=== PATIENT | male | born 1990 | race Caucasian/White ===

== ENCOUNTER 2017-02-17 23:31 | Emergency (ER) | payer SELFPAY ==
[2017-02-17 23:43] VITALS: BP 150/94; PULSE 102; RESP 20; TEMP 97; O2SAT 98
[2017-02-18] MEDS ORDERED: Tetanus/Diphtheria Toxoids 0.5 ml Syringe IM ONE (00:05)
[2017-02-18] MEDS ORDERED: Lidocaine 2% Inj (20ml) INFIL ONE (00:05)
[2017-02-18] MEDS ORDERED: Lidocaine 2% Inj (20ml) ONE (00:08)
--- NOTE | 2017-02-18 00:42 | C.PDOC ---
History Of Present Illness 26 year old male presents to the ED with mother for evaluation of a facial laceration which he sustained prior to arrival. Patient reports he was bitten by his friend's dog while he "was trying to kiss him". Patient now c/o bite wounds/ laceration to left upper lip and left cheek. Otherwise, pt denies headache, drooling, trismus, vision change, ear discharges, neck pain, chest pain , shortness of breath, abd. pain, N/V, denies deformity to B/L UEs and lEs, .At present time, pt appears some what intoxicated, not fully complaint. Time Seen by Provider: 02/17/17 23:36 Chief Complaint (Nursing): Abnormal Skin Integrity History Per: Patient History/Exam Limitations: no limitations Onset/Duration Of Symptoms: Hrs Current Symptoms Are (Timing): Still Present Location Of Injury: Left: Face (upper lip and cheek ) Additional History Per: Patient - Animal Bite Description Of The Attack: Tried To Pet Animal Description Of The Animal: Other (friend's pet) Past Medical History Reviewed: Historical Data, Nursing Documentation, Vital Signs Vital Signs: Last Vital Signs Temp 97.0 F L 02/17/17 23:41 Pulse 102 H 02/17/17 23:41 Resp 20 02/18/17 00:54 BP 150/94 H 02/17/17 23:41 Pulse Ox 98 02/23/17 21:28 - Medical History PMH: No Chronic Diseases Surgical History: No Surg Hx Family History: States: Unknown Family Hx - Social History Hx Tobacco Use: Yes Hx Alcohol Use: Yes Hx Substance Use: Yes - Immunization History Hx Tetanus Toxoid Vaccination: No Hx Influenza Vaccination: No Hx Pneumococcal Vaccination: No Review Of Systems Eyes: Negative for: Vision Change Cardiovascular: Negative for: Chest Pain Respiratory: Negative for: Shortness of Breath Musculoskeletal: Negative for: Neck Pain Skin: Positive for: Other (laceration to left upper lip and left cheek ) Physical Exam - Physical Exam Appears: Well, Non-toxic, No Acute Distress Skin: Normal Color, Warm, Dry, Other (4cm irregular cutaneous laceration to inner aspect of left side upper lip extend externally, cross vermilion border; small, multiple 1.0cm and 1.5cm cutaneous lacerations to left nasal labial fold . mild bloody discharges. No wound FB.) Eye(s): bilateral: PERRL Ear(s): Bilateral: Normal Nose: No Deformity, No Tenderness Oral Mucosa: Moist, No Drooling Tongue: Normal Appearing Lips: Laceration Throat: No Drooling Neck: Trachea Midline, Supple Chest: Symmetrical, No Deformity, No Tenderness Cardiovascular: Rhythm Regular Respiratory: No Decreased Breath Sounds, No Accessory Muscle Use, No Stridor, No Wheezing Gastrointestinal/Abdominal: Soft, No Tenderness, No Distention, No Guarding Extremity: Normal ROM, No Pedal Edema, No Deformity, No Swelling Neurological/Psych: Oriented x3, Normal Speech, Normal Cognition ED Course And Treatment O2 Sat by Pulse Oximetry: 98 (on RA) Pulse Ox Interpretation: Normal Progress Note: Cleocin PO, Tetanus IM, Tylenol PO administered. On re-eval, pt is afebrile, hemodynamicaly stable. non-toxic. Tolearte Po well in Ed. ENT: Left sided facial laceration repaired loosely with sutures. No dorooling, no trismus. Lungs: CTA B/L, BS equal B/L. ABd: benign, (-) guarding, (-) rebound. FAROMo f B/L UEs and LEs. Pt and mom advised on wound care. Advised to F /u with dogs owner/photographer on rabies vaccination. tetanus, abx given. Pt advised. ref. to F/U with PMD in 2 days for re-eavl. return if any new changes /infection. Laceration - Laceration Repair Left upper lip Wound Length (In cm): 4 Description Of Wound: Irregular Anesthesia: Lidocaine 2% Wound Examination: Irrigated With Saline, No FB With Wound Exploration Wound Closure: Suture (#5) Suture Technique And Material Used: Interrupted, Vicryl (4-0) Wound Complexity: Simple Disposition Counseled Patient/Family Regarding: Need For Followup, Rx Given - Disposition Referrals: [facility] [Outside] Disposition: HOME/ ROUTINE Disposition Time: 00:40 Condition: STABLE Additional Instructions: KEEP WOUND CLEAN, DRY TAKE MEDICATION PRESCRIBED SELF-ABSORBABLE SUTURES, IF NEEDED TO BE REMOVED IN 5 DAYS FOLLOW UP WITH DOG'S RISK MODELER TO VERIFY RABIES VACCINATION RETURN TO ED AT ANY TIME IF ANY SIGN OF INFECTION OR NEED RABIES VACCINATION Prescriptions: Bacitracin OINT 1 applic TP DAILY #1 tube Clindamycin [Cleocin] 300 mg PO Q8 #28 cap Instructions: Animal Bite (ED), Facial Laceration (ED) Forms: [employer] (Nigerian) - Clinical Impression Clinical Impression: Animal bite, Laceration - PA / CONTRACT NEGOTIATION MANAGER / Resident Statement MD/DO has reviewed & agrees with the documentation as recorded. - Scribe Statement The provider has reviewed the documentation as recorded by the Scribe (Shania Munoz) All medical record entries made by the Scribe were at my direction and personally dictated by me. I have reviewed the chart and agree that the record accurately reflects my personal performance of the history, physical exam, medical decision making, and the department course for this patient. I have also personally directed, reviewed, and agree with the discharge instructions and disposition.
== END 2017-02-18 00:54 | disposition home or self-care (01) ==
LOC: C.ER 23:31
DX: S01.511A Laceration without foreign body of lip, initial encounter (principal); W54.0XXA Bitten by dog, initial encounter; Y93.01 Activity, walking, marching and hiking; Y92.410 Unspecified street and highway as the place of occurrence of the external cause; Z23 Encounter for immunization